=== PATIENT | female | born 1995 | race Two or more races ===

== ENCOUNTER 2016-09-14 19:31 | Emergency (ER) | payer SELFPAY ==
[~2016-09-14] VITALS: Ht 167.6 cm; Wt 85.2 kg
[2016-09-14 19:33] VITALS: BP 113/69
[2016-09-14] MEDS ORDERED: DEXAMETHASONE 4 MG TABLET ONE (19:52)
[2016-09-14] MEDS ORDERED: DEXAMETHASONE 4 MG TABLET PO ONE (20:00)
== END 2016-09-14 20:11 | disposition home or self-care (01) ==
LOC: ED 19:50
DX: J02.0 Streptococcal pharyngitis (principal)
CPT/HCPCS: 99283

== ENCOUNTER 2016-11-14 17:35 | Emergency (ER) | payer SELFPAY ==
[~2016-11-14] VITALS: Ht 167.6 cm; Wt 84.6 kg
[2016-11-14 17:40] VITALS: BP 120/74
== END 2016-11-14 18:20 | disposition home or self-care (01) ==
LOC: ED 18:15
DX: L02.31 Cutaneous abscess of buttock (principal); N76.4 Abscess of vulva
CPT/HCPCS: 99283

== ENCOUNTER 2017-01-30 11:46 | Emergency (ER) | payer OTHER ==
[~2017-01-30] VITALS: Ht 167.6 cm; Wt 81.6 kg
[2017-01-30 11:50] VITALS: BP 117/80
[2017-01-30 12:44] LABS: HCG UR OBC PASS
== END 2017-01-30 14:21 | disposition home or self-care (01) ==
LOC: ED 13:07
DX: N30.00 Acute cystitis without hematuria (principal)
CPT/HCPCS: 81001; 81025; 87077; 87086; 87186; 99284

== ENCOUNTER 2017-08-05 14:55 | Emergency (ER) | payer SELFPAY ==
[~2017-08-05] VITALS: Ht 167.6 cm; Wt 78.6 kg
[2017-08-05 15:05] VITALS: BP 124/75
[2017-08-05] MEDS ORDERED: ACETAMINOPHEN 500 MG TABLET PO ONE (15:30)
[2017-08-05 15:34] LABS: BASOPHILS # (AUTO) 0.04 x10^3/uL (0-0.1); BASOPHILS % (AUTO) 1 % (0-1); EOSINOPHILS # (AUTO) 0.23 x10^3/uL (0-0.4); EOSINOPHILS % (AUTO) 3 % (1-7); LYMPHOCYTES # (AUTO) 1.97 x10^3/uL (1-3.4); LYMPHOCYTES % (AUTO) 24 % (22-44); MD NO; MEAN CORPUSCULAR HEMOGLOBIN 28.2 pg (27.0-34.8); MEAN CORPUSCULAR HGB CONC 32.9 g/dL (32.4-35.8); MEAN CORPUSCULAR VOLUME 85.8 fL (80-100); MEAN PLATELET VOLUME 9.2 fL (7.4-10.4); MONOCYTES # (AUTO) 0.58 x10^3/uL (0.2-0.8); MONOCYTES % (AUTO) 7 % (2-9); NEUTROPHILS # (AUTO) 5.47 x10^3/uL (1.8-6.8); NEUTROPHILS % (AUTO) 66 % (42-75); PLATELET COUNT 270 x10^3/uL (130-400); RED BLOOD COUNT 5.14 x10^6/uL (3.82-5.3); RED CELL DISTRIBUTION WIDTH 14.2 % (9.6-15.2)
[2017-08-05 15:46] LABS: ALBUMIN 3.9 g/dL (3.4-5.0); ANION GAP 5 mmol/L (5-15); CALCIUM 8.5 mg/dL (8.5-10.1); CHLORIDE 106 mmol/L (98-107)
[2017-08-05 15:53] LABS: ALANINE AMINOTRANSFERASE 19 U/L (12-78); ALKALINE PHOSPHATASE 90 U/L (45-117); BILIRUBIN,TOTAL 0.3 mg/dL (0.2-1.0)
[2017-08-05] MEDS ORDERED: ACETAMINOPHEN 500 MG TABLET ONE (15:56)
== END 2017-08-05 16:44 | disposition home or self-care (01) ==
LOC: ED 16:10
DX: N92.1 Excessive and frequent menstruation with irregular cycle (principal); N92.0 Excessive and frequent menstruation with regular cycle
CPT/HCPCS: 36415; 76830; 80053; 83690; 84703; 85025; 99285

== ENCOUNTER 2017-08-29 09:26 | Emergency (ER) | payer SELFPAY ==
[~2017-08-29] VITALS: Ht 167.6 cm; Wt 77.0 kg
[2017-08-29 09:32] VITALS: BP 124/79
[2017-08-29] MEDS ORDERED: DIPHENHYDRAMINE 50 MG/ML, 1ML ONE (09:55)
[2017-08-29] MEDS ORDERED: FAMOTIDINE 20 MG TABLET ONE (09:56)
[2017-08-29] MEDS ORDERED: FAMOTIDINE 20 MG TABLET PO ONE (10:00)
[2017-08-29] MEDS ORDERED: DIPHENHYDRAMINE 50 MG/ML, 1ML IM ONE (10:00)
== END 2017-08-29 10:34 | disposition home or self-care (01) ==
LOC: ED 10:32
DX: L50.9 Urticaria, unspecified (principal)
CPT/HCPCS: 96372; 99283; J1200; J7512

== ENCOUNTER 2018-03-12 11:22 | Emergency (ER) | payer OTHER ==
[~2018-03-12] VITALS: Ht 165.1 cm; Wt 74.5 kg
[2018-03-12 11:23] VITALS: BP 123/85
[2018-03-12] MEDS ORDERED: KETOROLAC 30 MG/1 ML ONE (11:48)
[2018-03-12] MEDS ORDERED: KETOROLAC 30 MG/1 ML IM ONE (12:00)
== END 2018-03-12 12:40 | disposition home or self-care (01) ==
LOC: ED 12:18
DX: S80.01XA Contusion of right knee, initial encounter (principal); S83.241A Other tear of medial meniscus, current injury, right knee, initial encounter; X58.XXXA Exposure to other specified factors, initial encounter; Y93.89 Activity, other specified; Y92.89 Other specified places as the place of occurrence of the external cause; Y99.8 Other external cause status
CPT/HCPCS: 73564; 96372; 99284; J1885

== ENCOUNTER 2019-06-29 19:43 | Emergency (ER) | payer SELFPAY ==
[~2019-06-29] VITALS: Ht 167.6 cm; Wt 78.1 kg
[2019-06-29 22:02] LABS: BASOPHILS # (AUTO) 0.05 x10^3/uL (0-0.1); BASOPHILS % (AUTO) 1 % (0-1); EOSINOPHILS # (AUTO) 0.13 x10^3/uL (0-0.4); EOSINOPHILS % (AUTO) 2 % (1-7); LYMPHOCYTES # (AUTO) 2.21 x10^3/uL (1-3.4); LYMPHOCYTES % (AUTO) 33 % (22-44); MD NO; MEAN CORPUSCULAR HEMOGLOBIN 28.9 pg (27.0-34.8); MEAN CORPUSCULAR HGB CONC 33.2 g/dL (32.4-35.8); MEAN CORPUSCULAR VOLUME 87.2 fL (80-100); MEAN PLATELET VOLUME 9.6 fL (7.4-10.4); MONOCYTES # (AUTO) 0.46 x10^3/uL (0.2-0.8); MONOCYTES % (AUTO) 7 % (2-9); NEUTROPHILS # (AUTO) 3.86 x10^3/uL (1.8-6.8); NEUTROPHILS % (AUTO) 58 % (42-75); PLATELET COUNT 248 x10^3/uL (130-400); RED CELL DISTRIBUTION WIDTH 14.3 % (9.6-15.2)
[2019-06-29 22:14] LABS: ALANINE AMINOTRANSFERASE 18 U/L (12-78); ALBUMIN 4.1 g/dL (3.4-5.0); ANION GAP 6 mmol/L (5-15); CALCIUM 9.1 mg/dL (8.5-10.1); CHLORIDE 109 mmol/L (98-107); CREATININE 0.67 mg/dL (0.55-1.02)
[2019-06-29 22:18] LABS: ALKALINE PHOSPHATASE 84 U/L (45-117); BILIRUBIN,TOTAL 0.3 mg/dL (0.2-1.0); TOTAL PROTEIN 7.8 g/dL (6.4-8.2)
[2019-06-29 22:42] VITALS: BP 122/65
== END 2019-06-29 22:57 ==
LOC: ED 22:51
DX: R42 Dizziness and giddiness (principal)
CPT/HCPCS: 36415; 80053; 84443; 84703; 85025; 93005; 99284

== ENCOUNTER 2019-10-17 19:02 | Emergency (ER) | payer SELFPAY ==
[~2019-10-17] VITALS: Ht 165.1 cm; Wt 78.1 kg
[2019-10-17 19:04] VITALS: BP 134/78
[2019-10-17] MEDS ORDERED: KETOROLAC 30 MG/1 ML ONE (19:24)
[2019-10-17] MEDS ORDERED: KETOROLAC 30 MG/1 ML IM ONE (19:30)
== END 2019-10-17 20:04 | disposition home or self-care (01) ==
LOC: ED 19:50
DX: M76.892 Other specified enthesopathies of left lower limb, excluding foot (principal); M76.891 Other specified enthesopathies of right lower limb, excluding foot
CPT/HCPCS: 73564; 96372; 99283; J1885

== ENCOUNTER 2020-01-06 21:22 | Emergency (ER) | payer OTHER, SELFPAY ==
[~2020-01-06] VITALS: Ht 165.1 cm; Wt 78.0 kg
[2020-01-06 22:02] VITALS: BP 141/75
== END 2020-01-06 23:10 | disposition home or self-care (01) ==
LOC: ED 22:15
DX: B34.9 Viral infection, unspecified (principal); Z20.828 Contact with and (suspected) exposure to other viral communicable diseases
CPT/HCPCS: 36415; 71046; 87635; 99284